=== PATIENT | female | born 2000 | race American Indian/Alaskan Native ===

== ENCOUNTER 2022-02-25 00:41 | Emergency (ER) | payer MEDICAID, SELFPAY ==
[2022-02-25 00:51] VITALS: BP 128/69; PULSE 89; RESP 17; TEMP 37; O2SAT 100; BMI 32.9
--- NOTE | 2022-02-25 00:54 | DI.RAD.S_ITS ---
PROCEDURE: XR CHEST 1V INDICATIONS: Chest pain TECHNIQUE: One view of the chest was acquired. COMPARISON: None. FINDINGS: Surgical changes and devices: None. Lungs and pleura: Lungs are clear. No pleural effusions or pneumothorax. Mediastinum: Mediastinal contours appear normal. Heart size is normal. Bones and chest wall: No suspicious bony lesions. Overlying soft tissues appear unremarkable. IMPRESSION: 1. No acute cardiopulmonary disease. Dictated by: Jigar Beasley M.D. on 02/25/2022 at 1:10 Approved by: Jigar Beasley M.D. on 02/25/2022 at 1:10
--- NOTE | 2022-02-25 01:21 | ED_ITS ---
HPI - Chest Pain General Chief Complaint: Chest Pain Stated Complaint: BACK PAIN AND CHEST PAIN Time Seen by Provider: 02/25/22 00:49 Source: patient Mode of arrival: Ambulatory Limitations: no limitations History of Present Illness HPI narrative: 21-year-old female who is here for evaluation 3 weeks of upper chest discomfort and upper back discomfort. He states that it started office being intermittent but now has become more constant. It does get somewhat better when she takes a deep breath but not worse when she touches it or moves or eats. She did vomit 1 time this morning which she thought that was because she took Tylenol and it upset her stomach. She has tried some Tylenol initially it was helping her symptoms but now it seems to be not working as much. No change in bowel habits. Has not been evaluated further symptoms prior to this evening. Related Data Allergies Allergy/AdvReac Type Severity Reaction Status Date / Time No Known Drug Allergies Allergy Verified 02/25/22 00:51 Review of Systems Constitutional Constitutional: Reports system reviewed and no additional complaints, except as documented ENT Ears, Nose, Mouth, and Throat: Reports system reviewed and no additional complaints, except as documented Cardiovascular Cardiovascular: Reports system reviewed and no additional complaints, except as documented Respiratory Respiratory: Reports system reviewed and no additional complaints, except as documented Musculoskeletal Musculoskeletal: Reports system reviewed and no additional complaints, except as documented Integumentary/Breasts Skin/Breast: Reports system reviewed and no additional complaints, except as documented Hematologic/Lymphatic On Anticoagulants: No Patient History Medical History Healthy adult Social History Smoking Status: Current every day smoker Smoking Status: Current every day smoker tobacco type: vaping Substance Use Type: does not use Exam Initial Vital Signs Initial Vital Signs: Vital Signs Temperature 98.6 F 02/25/22 00:51 Pulse Rate 89 02/25/22 00:51 Respiratory Rate 17 02/25/22 00:51 Blood Pressure 128/69 02/25/22 00:51 Pulse Oximetry 100 02/25/22 00:51 Oxygen Delivery Method 02/25/22 00:51 Const General: cooperative and healthy appearing Chest Chest: No crepitus and No tenderness Resp Effort & Inspection: normal respiratory effort Auscultation: clear to auscultation bilaterally Cardio Rate: regular rate Rhythm: regular rhythm Back/Spine/Pelvis Thoracic/Lumbar Spine: No paraspinal tenderness and No thoracic spinal tenderness Skin General: no rashes or lesions noted Extrem General: normal to inspection and capillary refill normal Psych Appearance: grossly normal Course Orders Ordered: ED Orders 02/25/22 00:54 XR chest 1V Stat EKG-12 Lead Stat Vital Signs Vital signs: Vital Signs - 8 hr 02/25/22 00:51 Temperature 98.6 F Pulse Rate 89 Respiratory Rate 17 Blood Pressure 128/69 Pulse Oximetry 100 Oxygen Delivery Method Room Air MDM - Chest Pain Imaging Data Chest x-ray: Radiologist's Impression: [address] [address] XRay Report Signed Patient: Em Gregg MR#: [id number] : 2000 Acct:[id number] Age/Sex: 21 / F Date of Service: 02/25/22 Loc: ED Accession Number: [id number] ?? Procedure: XR chest 1V Ordering Provider: Ric Gray D.O. PROCEDURE:? XR CHEST 1V ? INDICATIONS:? Chest pain ? TECHNIQUE:? One view of the chest was acquired.? ? COMPARISON:? None. ? FINDINGS:? ? Surgical changes and devices:? None.? ? Lungs and pleura:? Lungs are clear.? No pleural effusions or pneumothorax.? ? Mediastinum:? Mediastinal contours appear normal.? Heart size is normal.? ? Bones and chest wall:? No suspicious bony lesions.? Overlying soft tissues appear unremarkable.? ? IMPRESSION:? ? 1.? No acute cardiopulmonary disease. ? ? ? Dictated by: Jigar Beasley M.D. on 02/25/2022 at 1:10 ? ? Approved by: Jigar Beasley M.D. on 02/25/2022 at 1:10?? ECG Data Attestation: I personally reviewed and interpreted this ECG as follows: Interpretation: Sinus rhythm Ventricular rate 95 Normal axis Normal QRS Normal QTC No ST T changes [facility] Narrative Medical decision making narrative: Chest x-ray is unremarkable. EKG is unremarkable. Clear lung exam. Not reproducible with palpation. Low suspicion for ACS, pulmonary embolism, dissection, pneumonia, pneumothorax. Given her clinical presentation no further workup required in the emergency department. Patient was instructed that she could try other anti-inflammatories such as Motrin and also a reflux medication such as famotidine. She was given return precautions. She expressed understanding and agreement. Discharge Plan Departure Patient Disposition: Home Clinical Impression: Atypical chest pain Instructions: DI for Atypical Chest Pain Activity Restrictions/Additional Instructions: I do recommend that you start taking a anti-inflammatories such as Motrin or Naprosyn. You can also try a reflux medicine such as famotidine. You can purchase these [id number]. Contact your primary doctor for follow-up. Return to the emergency department for any new or worsening symptoms.
[2022-02-25 01:32] VITALS: BP 110/59; PULSE 80; RESP 20; O2SAT 97
== END 2022-02-25 01:33 | disposition home or self-care (01) ==
PROVIDERS: Emergency Provider Emergency Medicine
DX: R07.89 Other chest pain (principal); M54.6 Pain in thoracic spine
CPT/HCPCS: 71045; 93005; 93010; 99282; 99283

== ENCOUNTER 2025-08-23 15:42 | Emergency (ER) | payer SELFPAY ==
[2025-08-23 16:08] VITALS: BP 131/75; PULSE 90; RESP 16; TEMP 36.9; O2SAT 97; BMI 29.2
--- NOTE | 2025-08-23 16:34 | ED.UPPEXIN ---
HPI - Extremity Injury (Upper) <Beverly Bob PA-C - Last Filed: 08/23/25 19:45> General Chief Complaint: Extremity Injury, Upper Stated Complaint: Lt shoulder popped out of place Time Seen by Provider: 08/23/25 16:09 Source: patient Mode of arrival: Ambulatory History of Present Illness HPI narrative: Em is a pleasant 24-year-old female who presents to the emergency department for concern of left shoulder pain today. Patient states that she was lifting up her toddler when she felt her left shoulder pop out of place and then popped back into place. She has had persistent pain of her posterior/superior left shoulder since then. She is still is able to fully move her left shoulder however she does have pain shooting down the arm. No numbness tingling or weakness. No open wounds. This is never happened to her before. No medications prior to arrival. Related Data Allergies Allergy/AdvReac Type Severity Reaction Status Date / Time No Known Drug Allergies Allergy Verified 08/23/25 16:08 Review of Systems <Beverly Bob PA-C - Last Filed: 08/23/25 19:45> Review of Systems ROS Unobtainable: All systems reviewed & are unremarkable except as noted in HPI and below Patient History <Beverly Bob PA-C - Last Filed: 08/23/25 19:45> Medical History Healthy adult Social History Smoking Status: Former smoker Smoking Status: Former smoker tobacco type: vaping Exam <Beverly Bob PA-C - Last Filed: 08/23/25 19:45> Narrative Exam Narrative: GENERAL: 24 year old patient appears stated age. Well-developed patient, in no acute distress. HEAD: Atraumatic. Normocephalic. EYES: No scleral icterus. No injection or drainage. NECK: Trachea midline. Cervical ROM intact. No midline cervical tenderness. CARDIOVASCULAR: Regular rate RESPIRATORY: ?Nonlabored respirations. ?Speaking in clear, full sentences. EXTREMITIES: Tenderness to palpation of left posterior shoulder/superior trapezius region. No bony tenderness. No clavicular tenderness. Patient is able to actively abduct, adduct, flex and extend the left shoulder. 5/5 bilateral shoulder abduction strength however it does reproduce pain in the patient. 2+ radial pulses bilaterally. BACK: No midline spinal tenderness. NEURO: AOx3. ?Clear speech. ?Sensation intact to light touch in the distribution of the median, ulnar, radial nerves bilaterally. SKIN: No rash or erythema of visible areas Initial Vital Signs Initial Vital Signs: Vital Signs Temperature 98.5 F 08/23/25 16:08 Pulse Rate 90 08/23/25 16:08 Respiratory Rate 16 08/23/25 16:08 Blood Pressure 131/75 08/23/25 16:08 Pulse Oximetry 97 08/23/25 16:08 Oxygen Delivery Method Room Air 08/23/25 16:08 <Joe Balderas MD - Last Filed: 08/23/25 23:41> Initial Vital Signs Initial Vital Signs: Vital Signs Temperature 98.5 F 08/23/25 16:08 Pulse Rate 90 08/23/25 16:08 Respiratory Rate 16 08/23/25 16:08 Blood Pressure 131/75 08/23/25 16:08 Pulse Oximetry 97 08/23/25 16:08 Oxygen Delivery Method Room Air 08/23/25 16:08 Course <Beverly Bob PA-C - Last Filed: 08/23/25 19:45> Orders Ordered: ED Orders 08/23/25 16:33 XR shoulder LT 2+ views Stat Discontinued Medications Acetaminophen (Acetaminophen 325 Mg Tablet) 650 mg PO NOW ONE Stop: 08/23/25 16:34 Last Admin: 08/23/25 17:19 Dose: 650 mg Documented By: MANA Ibuprofen (Ibuprofen 400 Mg Tablet) 400 mg PO NOW ONE Stop: 08/23/25 16:34 Last Admin: 08/23/25 17:19 Dose: 400 mg Documented By: MANA Lidocaine (Lidocaine 5% Patch) 1 each TOP NOW ONE Stop: 08/23/25 16:34 Last Admin: 08/23/25 17:20 Dose: 1 each Documented By: MANA Vital Signs Vital signs: Vital Signs - 8 hr 08/23/25 16:08 08/23/25 18:35 Temperature 98.5 F Pulse Rate 90 66 Respiratory Rate 16 16 Blood Pressure 131/75 121/71 Pulse Oximetry 97 98 Oxygen Delivery Method Room Air Room Air <Joe Balderas MD - Last Filed: 08/23/25 23:41> Orders Ordered: ED Orders 08/23/25 16:33 XR shoulder LT 2+ views Stat Discontinued Medications Acetaminophen (Acetaminophen 325 Mg Tablet) 650 mg PO NOW ONE Stop: 08/23/25 16:34 Last Admin: 08/23/25 17:19 Dose: 650 mg Documented By: MANA Ibuprofen (Ibuprofen 400 Mg Tablet) 400 mg PO NOW ONE Stop: 08/23/25 16:34 Last Admin: 08/23/25 17:19 Dose: 400 mg Documented By: MANA Lidocaine (Lidocaine 5% Patch) 1 each TOP NOW ONE Stop: 08/23/25 16:34 Last Admin: 08/23/25 17:20 Dose: 1 each Documented By: MANA Vital Signs Vital signs: Vital Signs - 8 hr 08/23/25 16:08 08/23/25 18:35 Temperature 98.5 F Pulse Rate 90 66 Respiratory Rate 16 16 Blood Pressure 131/75 121/71 Pulse Oximetry 97 98 Oxygen Delivery Method Room Air Room Air MDM - Extremity Injury (Upper) <Beverly Bob PA-C - Last Filed: 08/23/25 19:45> Imaging Data Left Shoulder XR: Radiologist's Impression: PROCEDURE: XR SHOULDER LT MIN 2V INDICATIONS: L shoulder popped out and back in, pain TECHNIQUE: 3 views of the shoulder were acquired. COMPARISON: None. FINDINGS: Bones: No fractures or dislocations. No suspicious bony lesions. Visualized ribs appear intact. Soft tissues: No suspicious soft tissue calcifications. IMPRESSION: No visualized acute fracture or dislocation. However, if clinical concern and/or pain persist, short interval imaging followup in 7-10 days is recommended, as occult injury cannot be definitively excluded. Dictated by: Anuradha Coronel M.D. on 08/23/2025 at 16:56 Approved by: Anuradha Coronel M.D. on 08/23/2025 at 16:59 MDM Narrative Medical decision making narrative: 24-year-old female who presents to the emergency department for concern of left shoulder pain today. Patient states that she was lifting up her toddler when she felt her left shoulder pop out of place and then popped back into place. Differential diagnosis includes but isn't limited to left shoulder dislocation, relocation, AC joint separation, fracture, sprain, strain, rotator cuff injury, etc. On exam the patient is in no acute distress, nontoxic-appearing, all vital signs within normal limits. Upper extremities are neurovascularly intact, no deformities of the left shoulder, range of motion is intact. We will treat pain with ibuprofen and acetaminophen, Lidoderm and sling. We will obtain x-ray left shoulder. Left shoulder x-ray reveals no visualized acute fracture dislocation. Patient feeling better after ED treatment. Printed discussed imaging results, she is very reassured. Encouraged rice therapy, sling for comfort, follow up with the Orthopedics for persistent pain, ED return precautions. She verbalized understanding of all information agreeable with the plan. Declined the need for pain medication. She is stable for discharge home. <Joe Balderas MD - Last Filed: 08/23/25 23:41> MDM Narrative Medical decision making narrative: 24-year-old female who presents to the emergency department for concern of left shoulder pain today. Patient states that she was lifting up her toddler when she felt her left shoulder pop out of place and then popped back into place. Differential diagnosis includes but isn't limited to left shoulder dislocation, relocation, AC joint separation, fracture, sprain, strain, rotator cuff injury, etc. On exam the patient is in no acute distress, nontoxic-appearing, all vital signs within normal limits. Upper extremities are neurovascularly intact, no deformities of the left shoulder, range of motion is intact. We will treat pain with ibuprofen and acetaminophen, Lidoderm and sling. We will obtain x-ray left shoulder. Left shoulder x-ray reveals no visualized acute fracture dislocation. Patient feeling better after ED treatment. Printed discussed imaging results, she is very reassured. Encouraged rice therapy, sling for comfort, follow up with the Orthopedics for persistent pain, ED return precautions. She verbalized understanding of all information agreeable with the plan. Declined the need for pain medication. She is stable for discharge home. I was available for consultation but not involved in this patient's care Discharge Plan Departure Patient Disposition: Home Clinical Impression: Sprain of left shoulder Qualifiers: Encounter type: initial encounter Shoulder sprain type: unspecified sprain Qualified Code(s): S43.402A - Unspecified sprain of left shoulder joint, initial encounter Instructions: DI for Shoulder Sprain Activity Restrictions/Additional Instructions: Dear Ms. Gregg, Thank you for coming to the emergency department. Today you were evaluated for left shoulder injury. Your x-ray does not reveal any broken bones. At this time I would like you to wear the sling for comfort, avoid heavy lifting or straining the shoulder. Please use RICE therapy for your pain in addition to ibuprofen/acetaminophen. Rest the painful area. Ice the area of pain/swelling for at least 15 minutes, 4x a day. Compress the area of swelling using a brace, wrap, or splint if applied. Elevate the painful or swollen extremity by supporting it above the level of the heart with pillows when sitting or laying. If your pain persists, gets worse or does not improve within the next 1-2 weeks please follow up with orthopedics. Please return to ER immediately if you develop severe pain, inability to move the shoulder any other concerns. Please follow up with your primary care doctor within the next 2-3 days for ER follow-up. (If you do not have a PCP you can call [phone]. ?to schedule an appointment with an [facility] Primary Care Provider) IF YOU DEVELOP ANY NEW OR WORSENING SYMPTOMS, RETURN TO THE ER! Please read the attached instructions, they highlight more specific treatments and interventions for you at home. Thank you for letting me participate in your care, Beverly Bob PA-C Referrals: Cristobal Leo MD [Physician, Orthopedics] Referral Note: L shoulder sprain Stand Alone Forms: Patient Portal/API
[2025-08-23] MEDS: IBUPROFEN 400 MG TABLET PO (17:19)
[2025-08-23] MEDS: ACETAMINOPHEN 325 MG TABLET 650 MG PO (17:19)
[2025-08-23] MEDS: LIDOCAINE 5% PATCH 1 EACH TOP (17:20)
[2025-08-23 18:35] VITALS: BP 121/71; PULSE 66; RESP 16; O2SAT 98
== END 2025-08-23 18:36 | disposition home or self-care (01) ==
PROVIDERS: Emergency Provider Physician Assistant
DX: S49.82XA Other specified injuries of left shoulder and upper arm, initial encounter (principal); M25.512 Pain in left shoulder; X50.0XXA Overexertion from strenuous movement or load, initial encounter
CPT/HCPCS: 73030; 99283